=== PATIENT | female | born 1960 | race Caucasian/White ===

== ENCOUNTER 2016-07-11 12:24 | Day surgery (SDC) | payer OTHER ==
[2016-07-11] MEDS ORDERED: LACTATED RINGERS 1,000 ML IV ONE ×2 (12:42→16:39)
[2016-07-11] MEDS ORDERED: fentaNYL 250 MCG/5 ML VIAL IVP ONE (15:00)
[2016-07-11] MEDS ORDERED: MIDAZOLAM 2 MG/2 ML VIAL IVP ONE (15:00)
== END 2016-07-11 12:25 | disposition home or self-care (01) ==
PROC: 0DBL8ZX Excision of Transverse Colon, Via Natural or Artificial Opening Endoscopic, Diagnostic (ICD-10-PCS; 2016-07-11)
PROC: 0DBP8ZX Excision of Rectum, Via Natural or Artificial Opening Endoscopic, Diagnostic (ICD-10-PCS; principal; 2016-07-11 13:45)
DX: Z12.11 Encounter for screening for malignant neoplasm of colon (principal); K64.4 Residual hemorrhoidal skin tags; K64.8 Other hemorrhoids; D12.3 Benign neoplasm of transverse colon; K62.1 Rectal polyp; Z87.891 Personal history of nicotine dependence; E06.3 Autoimmune thyroiditis
CPT/HCPCS: 45380; 45385; J3010; J7120

== ENCOUNTER 2023-01-23 06:18 | Day surgery (SDC) | payer OTHER ==
[2023-01-23] MEDS ORDERED: LACTATED RINGERS 1,000 ML IV ONE ×2 (06:20→08:05)
[2023-01-23] MEDS ORDERED: GLYCOPYRROLATE 1 MG/5 ML VIAL ONE (06:54)
--- NOTE | 2023-01-23 07:00 | ANESTHESIA ---
Pre-Anesthesia VS, & Labs - Diagnosis screening - Procedure colonoscopy Vital Signs: Temp Pulse Resp BP Pulse Ox O2 Flow Rate 36.4 C L 85 16 133/95 H 100 01/23/23 06:20 01/23/23 06:20 01/23/23 06:20 01/23/23 06:20 01/23/23 06:20 Height: 5 ft 5 in - NPO >8 hours - Is Patient ?: No - Lab Results Lab results reviewed: Yes Home Medications and Allergies Levothyroxine Sodium [Synthroid] 88 mcg PO DAILY 07/11/16 Allergies/Adverse Reactions: Allergies Allergy/AdvReac Type Severity Reaction Status Date / Time No Known Drug Allergies Allergy Verified 01/22/23 12:11 Anes History & Medical History - Anesthetic History Anesthesia Complications: reports: No previous complications Family history of Anesthesia Complications: Denies Family history of Malignant Hyperthermia: Denies - Medical History Cardiovascular: reports: None Pulmonary: reports: None Gastrointestinal: reports: Colon polyps Urinary: reports: None Neuro: reports: None Musculoskeletal: reports: None Endocrine/Autoimmune: reports: HyPOthyroidism Blood Disorders: reports: None Skin: reports: None Smoking Status: Never smoker Psychosocial: reports: No issues indicated Exam General: Alert, Oriented x3, Cooperative Dental: WNL Mouth Openin Fingerbreadth Neck Mobility: Normal Mallampati classification: I Thyromental Distance: 4-6 cm Respiratory: Lungs clear Cardiovascular: Regular rate Plan Anesthesia Type: General, MAC Consent for Procedure(s) Verified and Reviewed: Yes Code Status: Attempt Resuscitation ASA classification: 2-Mild systemic disease Is this case an emergency?: No
[2023-01-23] MEDS ORDERED: PROPOFOL 200 MG/20 ML VIAL IVP ONE (07:55)
[2023-01-23] MEDS ORDERED: SIMETHICONE 40 MG/0.6 ML 15 ML BOTTLE PO ONE (07:56)
[2023-01-23] MEDS ORDERED: PROPOFOL 500 MG/50 ML 500 MG/50 ML VIAL ONE (08:42)
[2023-01-23 08:44] VITALS: BP 129/78; O2SAT 99
--- NOTE | 2023-01-23 11:19 | ANESTHESIA POST OP EVALUATION ---
Anesthesia Post Eval - Post Anesthesia Eval Vitals: Last Vital Signs Temp 36.0 C L 01/23/23 08:05 Pulse 70 01/23/23 08:38 Resp 17 01/23/23 08:38 BP 129/78 01/23/23 08:38 Pulse Ox 99 01/23/23 08:38 O2 Flow Rate CV Function Including HR & BP: Stable Pain Control: Satisfactory Nausea & Vomiting: Negative Mental Status: Baseline Respiratory Status: Airway Patent Hydration Status: Satisfactory Anesthesia Complications: None
== END 2023-01-23 06:19 | disposition home or self-care (01) ==
LOC: SDS 06:18
PROVIDERS: ATTEND Surgery
PROC: 0DBL8ZZ Excision of Transverse Colon, Via Natural or Artificial Opening Endoscopic (ICD-10-PCS; 2023-01-23)
PROC: 0DBN8ZZ Excision of Sigmoid Colon, Via Natural or Artificial Opening Endoscopic (ICD-10-PCS; principal; 2023-01-23 07:30)
DX: Z12.11 Encounter for screening for malignant neoplasm of colon (principal); D12.3 Benign neoplasm of transverse colon; K63.5 Polyp of colon; K57.30 Diverticulosis of large intestine without perforation or abscess without bleeding
CPT/HCPCS: 45380; 45385; A9270; J7120